=== PATIENT | female | born 1985 | race African-American/Black ===

== ENCOUNTER 2017-02-01 09:54 | Emergency (ER) | payer OTHER ==
[~2017-02-01] VITALS: Ht 157.5 cm; Wt 79.4 kg
--- NOTE | ~2017-02-01 | CR150 ---
[facility] A Service of [facility] & [facility] RADIOLOGY TEXT RESULTS PATIENT: JOSE FRENANDEZ LOCATION: [facility] : 87 UNIT #: [id number] AGE: [address]: Catracho Bee DO SEX: F ORDER DR: [id number] [facility] [address] [place], [place] [address] [id number] E MR#: [id number] Acc #: [id number] NAME: JOSE FERNANDEZ : 1985 SEX: F STUDY DATE/TIME: 02/01/2017 14:10 UNIT: [facility] ROOM: STUDY DESCRIPTION: CR Hip Min 2 Views Lt Attending Physician: Catracho Bee D.O. Ordering Physician: Catracho Bee D.O. Primary Care Physician: Bing Ward M.D. MEDICAL IMAGING REPORT This report is preliminary unless electronic signature is present EXAM Left hip series, 02/01/2017 HISTORY Trauma. Pain left side lower hand and hip region today, picked up baby and felt pain in back. AP radiograph of the pelvis is presented with frog-leg view left hip. Bony ring of pelvis is intact. Sacroiliac joints sacral arcuate lines intact. Bilateral hip joints normal in appearance. Bilateral proximal femurs intact. Periarticular soft tissues unremarkable. Intrauterine device projected over the central pelvis. Calcified phleboliths left hemipelvis. Visualized bowel gas pattern normal. Dictated by... Karlo Dejesus M.D. THIS IS AN ELECTRONICALLY VERIFIED REPORT Karlo Dejesus M.D. at 02/03/2017 10:02 PM Cindy TD: 02/01/2017 22:34 JOB #: [id number] MEDICAL IMAGING REPORT Page 1 of 1 COPY
--- NOTE | ~2017-02-01 | CR181 ---
[facility] A Service of [facility] & [facility] RADIOLOGY TEXT RESULTS PATIENT: JOSE FERNANDEZ LOCATION: [facility] : 87 UNIT #: [id number] AGE: [address]: Catracho Bee DO SEX: F ORDER DR: [id number] [facility] [address] [place], [place] [address] [id number] E MR#: [id number] Acc #: [id number] NAME: JOSE FERNANDEZ : 1985 SEX: F STUDY DATE/TIME: 02/01/2017 14:11 UNIT: [facility] ROOM: STUDY DESCRIPTION: CR Lumbar Spine 2 or 3 Views Attending Physician: Catracho Bee D.O. Ordering Physician: Catracho Bee D.O. MEDICAL IMAGING REPORT This report is preliminary unless electronic signature is present EXAM Lumbar spine series 02/01/2017 HISTORY Pain left side lower back/hip region today. Picked up baby, felt pain in back. TECHNIQUE AP and 2 lateral views of the lumbar spine are presented. FINDINGS No traumatic fracture or malalignment. Vertebral body heights, intervertebral disc space heights, and facet joint relationships are normal. Visualized bony pelvis unremarkable. Visualized lower thoracic spine normal. Intrauterine device in place. Visualized bowel gas pattern normal. Dictated by... Karlo Dejesus M.D. THIS IS AN ELECTRONICALLY VERIFIED REPORT Karlo Dejesus M.D. at 02/03/2017 10:02 PM LISA/keith TD: 02/01/2017 22:41 JOB #: [id number] MEDICAL IMAGING REPORT Page 1 of 1 COPY
[~2017-02-01 09:54] MED LIST: ADVAIR 2501 DISK W/D PO; ADVIL100 MG PO; ALBUTEROL17 GM INH; DOXYCYCLINE150 MG PO; FAMOTIDINE PO; FLAGYL PO; NAPROSYN500 MG PO; PREDNISONE PO; ZOFRAN ODT4 MG PO; ZYRTEC PO
[2017-02-01 12:54] LABS: URINE SOURCE CLEAN CATCH
[2017-02-01 13:04] LABS: URINE APPEARANCE CLEAR; URINE BILIRUBIN NEG (NEG); URINE BLOOD 2+ (NEG); URINE COLOR YELLOW; URINE GLUCOSE NEG (NEG); URINE KETONE NEG (NEG); URINE LEUKOCYTE ESTERASE 3+ (NEG); URINE NITRATE NEG (NEG); URINE PH 8.5 (5-8); URINE PROTEIN NEG (NEG); URINE SPECIFIC GRAVITY 1.009 (1.003-1.035); URINE UROBILINOGEN 0.2 MG/DL (NEG)
[2017-02-01 13:06] LABS: CULTURE INDICATED? YES; URINE BACTERIA AUWI 2+ (NEGATIVE); URINE SQUAMOUS EPITHELIAL CELL OCC /[HPF]
== END 2017-02-01 15:46 | disposition home or self-care (01) ==
LOC: CED 09:54
PROVIDERS: Emergency Medicine
DX: S39.012A Strain of muscle, fascia and tendon of lower back, initial encounter (principal); N30.90 Cystitis, unspecified without hematuria; J45.909 Unspecified asthma, uncomplicated; Z88.0 Allergy status to penicillin; X50.1XXA Overexertion from prolonged static or awkward postures, initial encounter; Y92.9 Unspecified place or not applicable; X58.XXXA Exposure to other specified factors, initial encounter
CPT/HCPCS: 72100; 73502; 81003; 84703; 87086; 99284; J1170; J1885; J2405